=== PATIENT | male | born 1975 | race Caucasian/White ===

== ENCOUNTER 2020-01-21 14:29 | Emergency (ER) | payer BC, SELFPAY ==
--- NOTE | ~2020-01-21 | XR_ITS ---
XR chest 2V DATE: 01/21/2020 15:27 INDICATION: Midline chest pain, fatigue TECHNIQUE: PA and lateral views COMPARISON: None FINDINGS: Normal heart size. No hilar or mediastinal enlargement. 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 No pulmonary infiltrate or consolidation, pleural effusion or pulmonary vascular congestio n or pneumothorax. IMPRESSION: No active cardiopulmonary disease Reviewed, dictated and finalized at location A.
[2020-01-21 14:32] VITALS: BP 163/91; PULSE 106; RESP 20; TEMP 36.8; O2SAT 100
--- NOTE | 2020-01-21 14:45 | ED.ARRPALP ---
HPI - Arrhythmia/Palpitations General Chief Complaint: Arrhythmia/Palpitations Stated Complaint: FEVER,CHILLS,FAST HEART RATE Time Seen by Provider: 01/21/20 14:42 Source: patient Mode of arrival: ambulatory Limitations: no limitations History of Present Illness HPI narrative: A 44 y/o male presents to the ED with c/o high heart rate. Pt stated that the high heart rates started 1 week ago while he was working out and the patient saw his PCP. At that PCP appointment, he had an EKG done which did not show any abnormalities. He notes that last night his rapid heart rate worsened while at rest, so he decided to come to the ED today. The fast heart rate is alleviated with Ibuprofen. Pt reports SOB, dizziness, lightheadedness, lethargy, and palpitations. He last took Ibuprofen x3 today. Pt adds that he is under a lot of stress lately due to losing his job. complaint: rapid heart beat Onset (ago): week(s) (1) Duration: constant Context: occurred during rest Associated symptoms: shortness of breath and other (Dizziness, lightheadedness, lethargy, palpitations) Treatments prior to arrival: other (Ibuprofen) Related Data Home Medications Medication Instructions Recorded Confirmed lisinopril 01/21/20 Allergies Allergy/AdvReac Type Severity Reaction Status Date / Time Sulfa (Sulfonamide Allergy Unknown Verified 01/21/20 14:47 Antibiotics) Review of Systems Review of Systems: All systems reviewed & are unremarkable except as noted in HPI and below Constitutional: Constitutional: Reports other (Lethargy) Cardiovascular: Cardiovascular: Reports rapid heart rate, Reports lightheadedness and Reports palpitations Respiratory: Respiratory: Reports dyspnea Neurologic: Reports dizziness PMFSH Past Medical History Medical History (Updated 01/21/20 @ 16:53 by Mala Mcdowell MD) HTN (hypertension) Surgical History Surgical History (Updated 01/21/20 @ 14:59 by Lo Solomon) No pertinent past surgical history Social History Social History (Updated 01/21/20 @ 14:58 by Lo Solomon) Smoking status: Never smoker Alcohol intake: never Exam Narrative: Exam Narrative: General appearance: Well-developed, well-nourished, anxious, restless, intermittent sighing, at the bedside Skin: Normal color Head: Normocephalic, nontraumatic Eyes: Clear conjunctiva ENT: Oropharynx normal, ears normal, nose normal Neck: Supple, nontender Chest and respiratory: Airway patent, no respiratory distress, no accessory muscle use Heart: Regular rate/rhythm Abdomen: Soft, nontender, no organomegaly, quiet bowel sounds Vascular: Normal peripheral pulses, normal capillary refill. Musculoskeletal: Normal range of motion, nontender back Neurologic: Alert and oriented ?3, SECURITY COORDINATOR is normal as tested, no gross motor deficit Course Course Emergency Course: Improving Vital Signs Vital signs: Vital Signs Temperature 36.8 C 01/21/20 14:32 Pulse Rate 106 H 01/21/20 14:32 Respiratory Rate 20 01/21/20 14:32 Blood Pressure 163/91 H 01/21/20 14:32 Pulse Oximetry 100 01/21/20 14:32 Temperature 36.8 C 01/21/20 14:32 Pulse Rate 104 H 01/21/20 16:46 Respiratory Rate 16 01/21/20 16:46 Blood Pressure 136/97 H 01/21/20 16:46 Pulse Oximetry 99 01/21/20 16:46 MDM - Arrhythmia/Palpitations MDM Narrative Medical decision making narrative: Patient presents with anxiety related symptoms. Reports a lot of stress lately, his home palpitation resolves on arrival to the emergency room. Anxiety versus hyperthyroidism versus electrolyte imbalance versus cardiac abnormality is my concern. Labs, EKG, 1 mg of Ativan IV ordered. Further plan
--- NOTE | 2020-01-21 14:46 | ECG_ITS ---
Measurements Intervals [place] Rate: 98 P: 11 ND: 120 QRS: 13 QRSD: 91 T: 8 QT: 305 QTc: 389 Interpretive Statements SINUS RHYTHM VENTRICULAR PREMATURE COMPLEX VOLTAGE CRITERIA FOR LVH BORDERLINE T WAVE ABNORMALITY- INFERIOR LEADS BORDERLINE ECG Electronically Signed On 01-21-2020 15:51:13 CDT by Johnathon Fairchild D.O.
[2020-01-21 15:04] LABS: Basophils Absolute Auto 0.1 K/mm3 (0.0-0.1); Basophils Percent Auto 0.7 % (0.2-1.2); Eosinophils Percent Auto 0.4 % (0-4.4); Hematocrit 48.7 % (42.0-52.0); Hemoglobin 16.4 g/dL (14.0-18.0); Immature Granulocyte Absolute 0.05 K/mm3 (0.00-0.031); Immature Granulocyte Percent A 0.5 % (0-0.5); Lymphocytes Absolute Auto 1.93 K/mm3 (0.9-3.2); Lymphocytes Percent Auto 19.8 % (18.3-44.2); Mean Corpuscular HGB Conc 33.7 g/dl (32-36); Mean Corpuscular Hemoglobin 29.7 pg (26-34); Mean Corpuscular Volume 88.1 fl (80-100); Mean Platelet Volume 9.8 fl (7.4-10.4); Monocytes Absolute Auto 0.6 K/mm3 (0.1-0.6); Monocytes Percent Auto 5.8 % (2.6-8.5); Neutrophils Absolute Auto 7.1 K/mm3 (1.3-6.7); Neutrophils Percent Auto 72.8 % (45.5-73.1); Platelet Count Result 305 k/mm3 (150-375); Red Blood Count 5.53 M/mm3 (4.6-6.20); Red Cell Distribution Width 12.3 % (11.5-14.5); White Blood Count 9.7 K/mm3 (4.5-10.0)
[2020-01-21 15:10] LABS: Blood Urea Nitrogen 14 mg/dL (9-20); Calcium 9.6 mg/dL (8.4-10.2); Carbon Dioxide 26 mmol/L (22-30); Chloride 107 mmol/L (98-107); Estimated Glomerular Filt Rate > 60; Glucose 100 mg/dL (75-110); Potassium 3.7 mmol/L (3.4-5.0); Sodium 141 mmol/L (137-145)
[2020-01-21] MEDS: LORAZEPAM INJ 2 MG/ML VIAL 1 MG IV PUSH (15:17)
[2020-01-21 16:46] VITALS: BP 136/97; PULSE 104; RESP 16; O2SAT 99
[2020-01-21 17:11] VITALS: BP 143/99; PULSE 114; RESP 18; O2SAT 97
== END 2020-01-21 17:13 | disposition home or self-care (01) ==
PROVIDERS: Emergency Provider Emergency Medicine; PCP Family Medicine
DX: R00.2 Palpitations (principal); F41.9 Anxiety disorder, unspecified; I10 Essential (primary) hypertension
CPT/HCPCS: 36415; 71046; 80048; 84443; 85025; 87804; 93005; 96374; 99284; J2060

== ENCOUNTER → 2020-08-23 16:16 | Outpatient (CLI) | payer BC, SELFPAY ==
--- NOTE | ~2020-08-23 | XR_ITS ---
EXAMINATION: XR knee RT 3V EXAM DATE: 08/23/2020 16:59 INDICATION: No known recent injury provided at this time. Pain of the right knee. TECHNIQUE: Three projections of the right knee. Correlation is made to contralateral knee same date. FINDINGS: No evidence osteochondral defect or joint body in the right knee joint. Trace joint flui d. There is moderate right patellar lateral tilt and subluxation, slightly more than the contralatera l side. There are no acute fractures or dislocations identified. There is no subcutaneous gas. The soft tissue is unremarkable. There are no radiopaque foreign bodies. IMPRESSION: Moderate right patellar lateral tilt and subluxation. Reviewed, dictated and finalized at location A.
--- NOTE | ~2020-08-23 | XR_ITS ---
EXAMINATION: XR knee LT 3V EXAM DATE: 08/23/2020 16:59 INDICATION: No known recent injury provided at this time. Pain of the left knee, behind patella. TECHNIQUE: Three projections of the left knee. There is no prior study for comparison. FINDINGS: No evidence osteochondral defect or joint body in the left knee joint. There is moderate l eft patellar lateral tilt and subluxation. No joint effusion. Joint spaces are maintained. There are no acute fractures or dislocations identified. There is no subcutaneous gas. The soft tissue is unr emarkable. There are no radiopaque foreign bodies. IMPRESSION: Moderate left patellar lateral tilt and subluxation. Reviewed, dictated and finalized at location A.
== END ==
PROVIDERS: PCP Family Medicine; Visit Provider Family Medicine
DX: S83.011A Lateral subluxation of right patella, initial encounter (principal); S83.012A Lateral subluxation of left patella, initial encounter; X58.XXXA Exposure to other specified factors, initial encounter
CPT/HCPCS: 73562

== ENCOUNTER 2024-03-22 14:44 | Outpatient (CLI) | payer BC, SELFPAY ==
--- NOTE | ~2024-03-22 | US_ITS ---
EXAMINATION: US soft tissue abdomen DATE: 03/22/2024 15:02 INDICATION: Hernia, abdominal TECHNIQUE: Multiple grayscale and Doppler ultrasound images of the abdomen were obtained. COMPARISON: None FINDINGS: There is no abnormal mass or hernia in the patient's area of concern in right upper quadran t of the abdomen. IMPRESSION: 1. No abnormal mass or hernia in the patient's area of concern in the right upper quadrant of the abd omen. Reviewed, dictated and finalized at location E. IMPRESSION: 1. No abnormal mass or hernia in the patient's area of concern in the right upp er quadrant of the abdomen.
== END 2024-03-22 14:45 ==
LOC: MICIMG 14:46
PROVIDERS: PCP Nurse Practitioner Family; Visit Provider Nurse Practitioner Family
DX: K46.9 Unspecified abdominal hernia without obstruction or gangrene (principal)
CPT/HCPCS: 76705

== ENCOUNTER 2025-05-23 01:03 | Day surgery (SDC) | payer BC, SELFPAY ==
[2025-05-05 08:36] VITALS: BMI 27.4
--- OUTSIDE RECORDS SUMMARY | 2025-05-23 01:06 | XMS_ITS | Clinical Summary ---
Author Organization [facility] Address [address] [place] [address] Care Team Providers Care Cloth Wire Weaver Name Role Phone Delia Ordaz MD Primary Care Provider [phone] Ariella Taylor APRN, LOSS PREVENTION REPRESENTATIVE-C Unavailable Allergies Active Allergy Reactions Criticality Noted Date Comments Sulfa Antibiotics Unknown 02/09/2020 Medications lisinopril 10 MG tablet Take 1 tablet by mouth daily. 10/24/2019 Active Multiple Vitamins-Mineral s (CENTRUM ADULTS OR) Take 1 tablet by mouth daily. Active melatonin 3 MG tablet Take 3 mg by mouth daily. Active diphenhydrAMINE 25 MG capsule Take 25 mg by mouth every 6 (six) hours as needed for Itching. Active Active Problems Problem Noted Date Diagnosed Date Patellofemoral pain syndrome of both knees 09/03 Shortness of breath 02/09/2020 PVC's (premature ventricular contractions) 02/08 Hypertension 02/09/2020 Palpitations Family History Medical History Relation Comments Cancer Father Hypertension Mother Relation Status Comments Father Alive Mother Alive Social History Tobacco Use Types Packs/Day Years Used Date Smoking Tobacco: Former Cigarettes Q uit: 2013 Smokeless Tobacco: Never Alcohol Use Standard Drinks/Week Comments Not Currently 0 (1 standard drink = 0.6 oz pur e alcohol) Rarely Sex and Gender Information Value Date Recorded Sex Assigned at Not on file 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 Gender Identity Not on file Sexual Orientation Not on file Last Filed Vital Signs Vital Sign Reading Time Taken Comments Blood Pressure 124/78 02/09/2020 9:57 AM CDT Pulse 105 02/09/2020 9:57 AM CDT Temperature - - Respiratory Rate 16 02/09/2020 9:57 AM CDT Oxygen Saturation - - Inhaled Oxygen Concentration - - Weight 83.5 kg (184 lb) 09/28/2020 8:46 AM 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 Height 172.7 cm (5' 8) 09/28/2020 8:46 AM 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 Body Mass Index 27.98 09/28/2020 8:46 AM 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 Plan of Treatment Health Maintenance Due Date Last Done Comments Colorectal Cancer Screening Colonoscopy (10 Years) 1976 Annual Physical 1979 Hepatitis C 1994 DTaP, Tdap and Td Vaccines (1 - Tdap) 1995 06/22/1981, 06/10/1978, 1976, Additional history exists Hepatitis B Vaccines (1 of 3 - 19+ 3-dose series) 1995 COVID-19 Vaccine (2023- season) 2024 Meningococcal B Vaccine Aged Out No l onger eligible based on patient's age to complete this topic Meningococcal Vaccine Aged Out No christiane sarah eligible based on patient's age to complete this topic Pneumococcal Vaccine: Pediatrics (0 to 5 Years) and At-Risk Patients (6 to 49 Years) Aged Out No longer eligible based on patient's age to complete this topic RSV Immunizations Under 20 Months Aged Out No longer eligible based on patient's age to complete this topic Insurance [facility] Care Teams Cloth Wire Weaver Relationship Specialty Start Date End Date Delia Ordaz MD [address] [facility] [place] [address] PCP - General FAMILY PRACTICE 01/26/20 Ariella Taylor APRN, LOSS PREVENTION REPRESENTATIVE-C [address] [facility] [address] [place] [address] NURSE PRACTITIONER 02/09/20
--- OUTSIDE RECORDS SUMMARY | 2025-05-23 01:06 | XMS_ITS | Clinical Summary ---
Author Organization [facility] Address [address] [place] [address] Phone Care Team Providers Care Injection Wax Molder Name Role Phone Unavailable Primary Care Provider Unavailabl e Encounters Date Type Department Care Team Description 04/11/2025 External Device Data [facility] ABSTRACTION Provider, Abstract 03/30/2025 External Device Data [facility] ABSTRACTION Provider, Abstract 03/29/2025 External Device Data [facility] ABSTRACTION Provider, Abstract 03/28/2025 External Device Data [facility] ABSTRACTION Provider, Abstract 02/21/2025 External Device Data [facility] ABSTRACTION Provider, Abstract from Last 3 Months Social History Tobacco Use Types Packs/Day Years Used Date Smoking Tobacco: Never Assessed Sex and Gender Information Value Date Recorded Sex Assigned at Not on file Legal 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
--- OUTSIDE RECORDS SUMMARY | 2025-05-23 01:06 | XMS_ITS | Encounter Summary ---
Author Organization [facility] Address [address] [place] [address] Care Team Providers Care Laborer Carpentry Dock Name Role Phone Delia Ordaz MD Primary Care Provider [phone] Ariella Taylor APRN, HEALTH TECHNICAL WRITER-C Unavailable Encounter Details Date Type Department Care Team (Late st Contact Info) Description 01/30/2020 Abstract [facility] [address] [place] [id number] Abstract, Doc [facility] Social History Tobacco Use Types Packs/Day Years Used Date Smoking Tobacco: Never Assessed Sex and Gender Information Value Date Recorded Sex Assigned at Not on file Legal 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 Male 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 Gender Identity Not on file Sexual Orientation Not on file documented as of this encounter Plan of Treatment Not on file documented as of this encounter Procedures Procedure Name Priority Date/Time Associated Diagnosis Comments CMP (ABSTRACTED LAB) Routine 01/14/2019 LIPID PANEL Routine 01/14/2019 documented in this encounter Results * LIPID PANEL (01/14/2019) CHOLESTEROL 165 HDL 42 TRIGLYCERIDES 137 CHOL/HDL RATIO 3.9 LDL (CALCULATED) 96 VLDL CALCULATION 27 01/14/2019 us Doc [facility] Abstract LABORATORY Final Result * (ABNORMAL) CMP (ABSTRACTED LAB) (01/14/2019) SODIUM S/P/B 142 POTASSIUM S/P/B 4.6 CHLORIDE S/P/B 104 CO2 22 BUN 14 CREATININE S/P/B 0.97 0.7 - 1.3 EGFR AFR. AMER. 111 EGFR NON-AFR. AMER. 96(A) <=90 CALCIUM S/P/B 9.2 GLUCOSE 85 mg/dL TOTAL PROTEIN S/P/B 7 ALBUMIN S/P/B 4.6 3.5 - 5.0 AST 28 ALT 20 ALKALINE PHOSPHATASE S/P/B 51 BILIRUBIN TOTAL S/P/B 0.6 01/14/2019 us Doc [facility] Abstract LAB-OUTSIDE/ABSTRACTED Final Result documented in this encounter Visit Diagnoses Not on filedocumented in this encounter Care Teams Laborer Carpentry Dock Relationship Specialty Start Date End Date Delia Ordaz MD [address] [facility] [place] [address] PCP - General FAMILY PRACTICE 01/26/20 Ariella Taylor, SALES REPRESENTATIVE PUBLICATIONS, HEALTH TECHNICAL WRITER-C [address] [facility] [address] [place] [phone] NURSE PRACTITIONER 02/09/20 documented as of this encounter
--- OUTSIDE RECORDS SUMMARY | 2025-05-23 01:06 | XMS_ITS | Encounter Summary ---
Author Organization [facility] Address [address] [place] [address] Care Team Providers Care Systems Auditor Name Role Phone Delia Ordaz MD Primary Care Provider [phone] Ariella Taylor APRN, FRAME REPAIRER-C Unavailable [phone] Encounter Details Date Type Department Care Team (Late st Contact Info) Description 09/03/2020 LDR Holding Message [facility] [place] [address] Smita Jackson, [facility] [address] [place] [address] Visit Follow Up Social History Tobacco Use Types Packs/Day Years Used Date Smoking Tobacco: Former Cigarettes Q uit: 2014 Smokeless Tobacco: Never Alcohol Use Standard Drinks/Week Comments Not Currently 0 (1 standard drink = 0.6 oz pur e alcohol) Rarely Sex and Gender Information Value Date Recorded Sex Assigned at Not on file 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 No / Unsure 09/03/2020 2:17 PM CDT documented as of this encounter Plan of Treatment Not on file documented as of this encounter Visit Diagnoses Not on filedocumented in this encounter Care Teams Systems Auditor Relationship Specialty Start Date End Date Delia Ordaz MD [address] [place] [phone] PCP - General FAMILY PRACTICE 01/26/20 Ariella Taylor, DREA, FRAME REPAIRER-C [address] [facility] [address] [place] [address] NURSE PRACTITIONER 02/09/20 documented as of this encounter
[2025-05-23 06:40] VITALS: BP 131/90; PULSE 105; RESP 16; TEMP 36.8; O2SAT 99; BMI 26.9
[2025-05-23] MEDS: LACTATED RINGERS 1,000 ML 150 ML IV CONT (06:58)
--- NOTE | 2025-05-23 07:04 | P.PNAN_ITS ---
Anes - Initial Pre Proc Eval Procedure: Operation Date: 05/23/25 08:00 Proposed Procedures p Screening Colonoscopy - Yasir Pedersen MD Date/Time: 05/23/25 07:04 Surgeon: Yasir Pedersen MD Pre Op Diagnosis: Encounter for screening for malignant neoplasm of Patient Data Age: 49 Gender: M Height: 1.73 m Weight: 80.2 kg Last Vital Signs Temp 98.2 F 05/23/25 06:40 Pulse 105 H 05/23/25 06:40 Resp 16 05/23/25 06:40 BP 131/90 05/23/25 06:40 Pulse Ox 99 05/23/25 06:40 O2 Del Method Room Air 05/23/25 06:40 Allergies Allergy/AdvReac Type Severity Reaction Status Date / Time Sulfa (Sulfonamide Allergy Unknown Verified 05/23/25 06:45 Antibiotics) Home Medications ?Medication ?Instructions ?Recorded ?Confirmed ?Type lisinopril 10 mg tablet 20 mg PO DAILY 01/21/20 05/23/25 History Patient hx anesthesia problems: none Family hx anesthesia problems: none Results Review: All pre-operative results and documents have been reviewed as part of the pre- operative evaluation. [facility] Past Medical History Medical History HTN (hypertension) Surgical History Surgical History No pertinent past surgical history Social History Social History Smoking status: Former smoker Alcohol intake: never Substance use: never Substance use type: does not use Living arrangements: with family Spiritual care concerns: No Anes - Eval Final PreProcedure Day of Procedure 05/23/25 07:04 Patient weight: normal Lungs: normal air movement Airway: Mallampati scale class II and special considerations (Lower perm retainer. ) Neurological: alert and oriented Last oral intake: >/= 8 hours ASA classification: II Emergent: no Anesthetic plan: proceed Anesthesia type and monitoring: general GIVS and standard monitoring Results Review: All pre-operative results and documents have been reviewed as part of the pre- operative evaluation. HTN, active without cp or sob, does lift wts, cardio without cp or sob. Informed Consent: The patient's anesthetic plan and its attendant risks and benefits were discussed with the patient/family/POA. Questions were solicited and answers provided to the satisfaction of the patient/family/POA.
--- NOTE | 2025-05-23 07:49 | PM.IMHP ---
H&P: HPI History of Present Illness Date/Time: 05/23/25 07:49 Chief Complaint: Screening colonoscopy Narrative: This is the patient's first colonoscopy. There are no GI symptoms and there is no family history of colorectal cancer. Review of Systems Review of Systems: All systems reviewed & are unremarkable except as noted in HPI and below PMFSH Past Medical History Medical History HTN (hypertension) Surgical History Surgical History No pertinent past surgical history Social History Social History Smoking status: Former smoker Alcohol intake: never Substance use: never Substance use type: does not use Living arrangements: with family Spiritual care concerns: No Meds Home Medications and Allergies Home Medications ?Medication ?Instructions ?Recorded ?Confirmed ?Type lisinopril 10 mg tablet 20 mg PO DAILY 01/21/20 05/23/25 History Allergies Allergy/AdvReac Type Severity Reaction Status Date / Time Sulfa (Sulfonamide Allergy Unknown Verified 05/23/25 06:45 Antibiotics) Vital Signs Vital Signs - 24 hr 05/23/25 06:40 Temperature 98.2 F Pulse Rate 105 H Respiratory Rate 16 Blood Pressure 131/90 Pulse Oximetry 99 Oxygen Delivery Room Air Exam Const: General: cooperative and healthy appearing Resp: Effort & Inspection: normal respiratory effort and able to speak in complete sentences Auscultation: clear to auscultation bilaterally Cardio: Rate: regular rate Rhythm: regular rhythm GI: Inspection: normal to inspection GI Palp: No No hepatosplenomegaly present Auscultation: normal bowel sounds Rectal Exam: deferred Skin: General skin exam: normal color Psych: Appearance: grossly normal Mental Status: mental status grossly normal Assessment and Plan Assessment and plan (1) Encounter for screening colonoscopy: Code(s): Z12.11 - Encounter for screening for malignant neoplasm of colon Status: Acute Assessment and Plan: The patient is deemed a good candidate for the procedure. Consent signed. Will proceed.
--- NOTE | 2025-05-23 08:15 | S_PTH ---
PATIENT: Claudio Henley LOC: [facility]#:[id number] AGE/SX: 49/M ROOM: RE05/23/[address]: Yasir Pedersen MD : 1975 BED: DIS: 05/23/2025 SPEC #: [id number] RECD: 05/23/25 10:26 STATUS: [place] REParish #: [id number] FILEMON: 05/23/25 08:[address]: Yasir Pedersen DEPT: [facility] Surgical RECD BY: Gema Salazar ENTERED: 05/23/25 10:27 SP TYPE: Surgical OTHR DR: Zahira Barron, INSTALLER MOLDING AND TRIM Tissues: A - Colon Polypectomy Procedures: Hematoxylin and Eosin Stain Gross and Microscopic Level 4
[2025-05-23 08:19] VITALS: BP 112/69; PULSE 104; RESP 20
[2025-05-23 08:29] VITALS: BP 129/73; PULSE 98; RESP 20
[2025-05-23 08:39] VITALS: BP 129/73; PULSE 89; RESP 18
== END 2025-05-23 08:48 | disposition home or self-care (01) ==
PROVIDERS: PCP Nurse Practitioner Family; Referring Provider Family Medicine; Visit Provider Internal Medicine Gastroenterology
PROC: 0DJD8ZZ Inspection of Lower Intestinal Tract, Via Natural or Artificial Opening Endoscopic (ICD-10-PCS; CPT 45378; principal; 2025-05-23 08:00)
DX: Z12.11 Encounter for screening for malignant neoplasm of colon (principal); K63.5 Polyp of colon; I10 Essential (primary) hypertension; Z87.891 Personal history of nicotine dependence
CPT/HCPCS: 45385; 88305; J2003; J2704; J7120